=== PATIENT | female | born 1980 | race Two or more races ===

== ENCOUNTER 2021-09-01 17:01 | Emergency (ER) | payer SELFPAY ==
[2021-09-01] MEDS ORDERED: Diphtheria,Pertussis(Acell),Tetanus Vaccine 0.5 ML Syringe IM ONE ×2 (20:26→22:45)
--- NOTE | 2021-09-01 20:26 | EDM.PDOC ---
<Shorty Thomas - Last Filed: 09/02/21 01:32> ED HPI GENERAL MEDICAL PROBLEM - General Chief Complaint: Lower Extremity Injury/Pain Stated Complaint: LT FOOT INJURY Time Seen by Provider: 09/01/21 19:35 Source of Information: Reports: Patient History Limitations: Reports: No Limitations - History of Present Illness INITIAL COMMENTS - FREE TEXT/NARRATIVE: 41-year-old female presents with left great toe injury. She dropped 100 pound weight onto her left great toe at 2 PM today. The nail is avulsed. She admits to pain at the left great toe that is moderate, constant, nonradiating, no alleviating or exacerbating factors. ROS: A 10-point review of systems, other than pertinent positives and negatives as stated per HPI, is otherwise negative Past medical history: No additional pertinent history Past Surgical history: No additional pertinent history Social history: No additional pertinent history Family history: No additional pertinent history PHYSICAL EXAM General: AOx4, GCS = 15, mild distress HEENT: dry mucous membrane Neck: supple, no meningismus, no Kernig or Brudzinski Cardiac: S1S2 RRR Respiratory: CTAB, no crackles or rales, no wheezing Abdomen: Soft, nontender, no rebound or guarding, nondistended, no pulsatile mass. Back: nontender Musculoskeletal: NVI distally, left great toe avulsed proximally, no fracture to the nail plate. trace bleeding. Neuro: No focal deficits, CN 2 - 12 WNL. Left Toe-Hailux Pain Score (Numeric/FACES): 6 - Related Data Allergies Allergy/AdvReac Type Severity Reaction Status Date / Time No Known Allergies Allergy Verified 09/01/21 19:37 Home Meds: Home Meds Naproxen [Naprosyn] 500 mg PO BID #10 tablet 09/01/21 [Rx] cephALEXin [Keflex] 500 mg PO Q8H #15 cap 09/01/21 [Rx] Past Medical History - Past Health History Medical/Surgical History: Denies Medical/Surgical History - Infectious Disease History Infectious Disease History: Reports: None Social & Family History - Family History Family Medical History: No Pertinent Family History - Tobacco Use Tobacco Use Status *Q: Never Tobacco User - Caffeine Use Caffeine Use: Reports: Coffee, Energy Drinks - Recreational Drug Use Recreational Drug Use: No Review of Systems - Review of Systems Review Of Systems: See Below (see dictation) ED EXAM, GENERAL - Physical Exam Exam: See Below (see dictation) ED TRAUMA EXTREMITY PROCEDURES - Splinting Left Lower Extremity Splint Site: Left foot Pre-Procedure NV Status: Normal Post-Procedure NV Status: Normal Splint Design: Other (Postop shoe) Applied & Form Fitted By: Nurse Provider Post-Splint Application NV Check: NV Status Normal, Good Position Progress/Comments: Splint: Postop shoe Indication: Left great toe tuft fracture How will this benefit patient: immobilization Duration: 7 days Course - Re-Assessments/Exams Free Text/Narrative Re-Assessment/Exam: 09/01/21 20:50 After suture repair and splint in the ER, the patient improved and is currently stable for discharge. I performed a repeat exam and did not appreciate new abnormal findings. Patient exhibits normal vital signs and has a normal gait on road test. I advised the patient to return to the ER for reevaluation if symptoms worsened, including fever, worsening pain, or any other worrisome symptoms. I instructed the patient to follow up for suture removal in 10 days. MEDICAL DECISION MAKING: I reviewed the patients past medical records, lab and radiographic findings. I discussed the case with the patient. My differential diagnosis included: Fracture, dislocation, nail plate injury. X-ray demonstrated fracture of the distal tuft of the left great toe. Patient was placed in a postop shoe. Nail did not demonstrate subungual hematoma. No trephination required. Suture replaced by my advanced provider. Please see her procedure note. The left great toe demonstrated good distal perfusion, warm, pink, cap refill <2 seconds, compartments soft, pulses equal in both extremities. Patient understands to return immediately for worsening pain, swelling, fever, numbness/tingling or other concerns and to f/u with podiatry, with instructions to remove sutures in 10 days. Departure - Departure Time of Disposition: 20:24 Disposition: Home, Self-Care 01 Condition: Good Clinical Impression: Laceration of left great toe with damage to nail, Open fracture of distal phalangeal tuft with routine healing - Discharge Information *PRESCRIPTION DRUG MONITORING PROGRAM REVIEWED*: Not Applicable *COPY OF PRESCRIPTION DRUG MONITORING REPORT IN PATIENT AJ: Not Applicable Prescriptions: cephALEXin [Keflex] 500 mg PO Q8H #15 cap Naproxen [Naprosyn] 500 mg PO BID #10 tablet Instructions: Laceration Care, Adult, Toe Fracture Referrals: Fantasma Ledesma, DPM [Ordering Only Provider] - 1 Week Franc Graves DPM [Ordering Only Provider] - 1 Week Marce Ritchie DPM [Ordering Only Provider] - 1 Week Trey Appiah II DPM [Ordering Only Provider] - 1 Week Forms: ED Department Discharge Additional Instructions: The need for follow-up, as well as the timing and circumstances, are variable depending upon the specifics of your emergency department visit. If you don't have a primary care physician on staff, we will provide you with a referral. We always advise you to contact your personal physician following an emergency department visit to inform them of the circumstance of the visit and for follow-up with them and/or the need for any referrals to a consulting specialist. The emergency department will also refer you to a specialist when appropriate. This referral assures that you have the opportunity for follow-up care with a specialist. All of these measure are taken in an effort to provide you with optimal care, which includes your follow-up. Under all circumstances we always encourage you to contact your private physician who remains a resource for coordinating your care. When calling for follow-up care, please make the office aware that this follow-up is from your recent emergency room visit. If for any reason you are refused follow-up, please contact the [facility] Emergency Department at and asked to speak to the emergency department charge nurse. If you do not have a primary care doctor, please follow up with the clinics below within 3-5 days. Madiha Dasilva [facility] - Primary Care [address] [place] [address] [facility] [address] [place] [address] <Noa Rod - Last Filed: 09/02/21 10:46> ED TRAUMA EXTREMITY PROCEDURES - Laceration/Wound Repair Left Distal Toe - Great Lac/Wound Length In cm: 2.5 Appearance: Subcutaneous Distal NVT: Neuro & Vascular Intact, No Tendon Injury Anesthetic Type: Local Local Anesthesia - Lidocaine (Xylocaine): 1% Plain Local Anesthetic Volume: 5cc Skin Prep: Chlorhexidine (Hibiciens), Saline Exploration/Debridement/Repair: Wound Explored, Multiple Flaps Aligned Closed With: Sutures Suture Size: 3-0 # of Sutures: 3 Suture Type: Prolene, Interrupted, Simple Sterile Dressing Applied: Nurse Tetanus Status Addressed: Yes Complications: No Course - Vital Signs Last Recorded V/S: Last Vital Signs Temp 97.8 F 09/01/21 19:38 Pulse 70 09/01/21 19:38 Resp 18 09/01/21 19:38 BP 139/96 H 09/01/21 19:38 Pulse Ox 99 09/01/21 19:38 - Orders/Labs/Meds Orders: Active Orders 24 hr Category Date Time Status Vaccine to be Administered/Admin Charge [RC] ASDIRECTED Care 09/01/21 22:45 Active DME for Discharge [COMM] Stat Oth 09/01/21 22:25 Ordered Meds: Medications Discontinued Medications Generic Name Dose Route Start Last Admin Trade Name Freq PRN Reason Stop Dose Admin Cephalexin 500 mg 09/01/21 21:49 09/01/21 22:07 Cephalexin 500 Mg Cap PO 09/01/21 21:50 500 mg ONETIME ONE Administration Diphtheria/Tetanus/Acell Pertussis 0.5 ml 09/01/21 20:26 09/01/21 21:57 Diphtheria,Pertussis(Acell),Tetanus Vaccine 0.5 Ml Syringe IM 09/01/21 20:27 Not Given .ONCE ONE Diphtheria/Tetanus/Acell Pertussis Confirm 09/01/21 21:56 09/01/21 22:45 Diphtheria,Pertussis(Acell),Tetanus Vaccine 0.5 Ml Syringe Administered 09/01/21 21:57 Not Given Dose 0.5 ml .ROUTE .[facility] Diphtheria/Tetanus/Acell Pertussis 0.5 ml 09/01/21 22:45 09/01/21 22:15 Diphtheria,Pertussis(Acell),Tetanus Vaccine 0.5 Ml Syringe IM 09/01/21 22:46 0.5 ml .ONCE ONE Administration Lidocaine HCl 10 ml 09/01/21 20:19 09/01/21 22:06 Lidocaine 1% 5 Ml Sdv INJECT 09/01/21 20:20 10 ml ONETIME ONE Administration
--- NOTE | 2021-09-01 20:35 | CR ---
Indication: Dropped 100 pound weight on great toe. Technique: Three views of the left foot. Comparison: None Findings: A fracture of the tuft of the distal phalanx of the left great toe is identified. A tiny plantar calcaneal spur is identified. The joint spaces are well maintained. Impression: Fracture of the tuft of the distal phalanx of the left great toe Dictated by Nina Pritchett MD @ 09/01/2021 8:34:13 PM (Electronically Signed)
[2021-09-01] MEDS ORDERED: Cephalexin 500 MG Cap PO ONE (21:49)
[2021-09-01] MEDS ORDERED: Diphtheria,Pertussis(Acell),Tetanus Vaccine 0.5 ML Syringe ONE (21:56)
== END 2021-09-01 22:11 | disposition home or self-care (01) ==
LOC: MW.ED 17:01
DX: S92.422D Displaced fracture of distal phalanx of left great toe, subsequent encounter for fracture with routine healing (principal); Z23 Encounter for immunization; W20.8XXA Other cause of strike by thrown, projected or falling object, initial encounter
CPT/HCPCS: 12001; 73630; 90471; 90715; 99283; A9270